=== PATIENT | female | born 1965 | race Caucasian/White ===

== ENCOUNTER 2017-04-12 18:58 | Emergency (ER) | payer OTHER ==
[~2017-04-12] VITALS: Ht 167.6 cm; Wt 68.5 kg
[2017-04-12] MEDS ORDERED: MOTRIN600 MG PO (22:38)
[2017-04-12 22:58] VITALS: BP 171/109
== END 2017-04-12 23:05 | disposition home or self-care (01) ==
LOC: EME → EDBD 18:58 → EXP 18:58
DX: S01.81XA Laceration without foreign body of other part of head, initial encounter (principal); M79.601 Pain in right arm; S00.31XA Abrasion of nose, initial encounter; S00.511A Abrasion of lip, initial encounter; S80.212A Abrasion, left knee, initial encounter; S80.211A Abrasion, right knee, initial encounter; S00.03XA Contusion of scalp, initial encounter; W10.9XXA Fall (on) (from) unspecified stairs and steps, initial encounter; F41.9 Anxiety disorder, unspecified; Z23 Encounter for immunization; Z87.891 Personal history of nicotine dependence
CPT/HCPCS: 70450; 73090; 99281; 99285